=== PATIENT | male | born 1940 | race Caucasian/White ===

== ENCOUNTER → 2022-12-05 | Outpatient (CLI) | payer OTHER ==
--- NOTE | 2022-12-05 14:56 | CT ---
EXAMINATION TYPE: CT chest wo con CT DLP: 333 mGycm, Automated exposure control for dose reduction was used. DATE OF EXAM: 12/05/2022 2:09 PM COMPARISON: None CLINICAL INDICATION:Male, 82 years old with history of R06.09 dyspnea; PHH, Difficulty breathing TECHNIQUE: : High resolution contiguous 1.5 mm axial images of the chest were obtained in a supine an d prone position. Noncontiguous 1 mm axial images at 10 mm intervals were obtained in supine position in expiration. Coronal and sagittal reformatted images were obtained. No intravenous contrast was ad ministered. Contrast used: mL of (None if empty) Oral contrast used: (None if empty) FINDINGS: LUNGS: There is no evidence of interstitial thickening, significant groundglass opacity, honeycombing or architectural distortion in the lungs. No acute area of infiltrative or consolidative change. LARGE AIRWAYS: Minimal bronchiectasis noted in the lung bases.. Central airways are patent. PLEURA: No pleural effusion or thickening. HEART AND PERICARDIUM: The heart is enlarged for size. Coronary artery cusp patient's. Cardiac conduc tion leads are present. MEDIASTINUM AND [place]: No mediastinal or hilar lymphadenopathy or soft tissue mass. VESSELS: The thoracic aorta is normal in course and caliber. CHEST WALL AND DIAPHRAGM: Normal. LOWER NECK: Normal. UPPER ABDOMEN: Unremarkable. MUSCULOSKELETAL: No acute fracture. IMPRESSION: 1. No HRCT findings suspicious for interstitial lung disease. 2. Mild COPD. 3. Cardiomegaly
== END | disposition home or self-care (01) ==
LOC: RADCTMAIN 13:30
PROVIDERS: ATTEND Internal Medicine Critical Care Medicine
DX: J44.9 Chronic obstructive pulmonary disease, unspecified (principal); R06.09 Other forms of dyspnea; I51.7 Cardiomegaly
CPT/HCPCS: 71250

== ENCOUNTER → 2023-02-09 | Outpatient (CLI) | payer OTHER ==
[2023-02-09 16:26] LABS: Basophils # (A) 0.06 X 10*3/uL (0.00-0.10); Basophils % (A) 0.7 %; Eosinophils # (A) 0.36 X 10*3/uL (0.04-0.35); Eosinophils % (A) 4.1 %; HCT 42.7 % (39.6-50.0); HGB 13.6 d/dL (13.0-17.0); Lymphocytes # (A) 2.28 X 10*3/uL (0.90-5.00); Lymphocytes % (A) 25.9 %; MCHC 31.9 d/dL (32.0-37.0); Mean Platelet Volume 11.2 FL (9.5-12.2); Monocytes # (A) 0.84 X 10*3/uL (0.20-1.00); Monocytes % (A) 9.5 %; NRBC Per 100 WBC 0 X 10*3/uL (0.00-0.01); Neutrophils # (A) 5.23 X 10*3/uL (1.80-7.70); Neutrophils % (A) 59.5 %; Platelet Count 201 X 10*3/uL (140-440); RBC 4.69 X 10*6/uL (4.40-5.60)
[2023-02-09 16:38] LABS: BUN/Creat Ratio 17.44 Ratio (12.00-20.00); Blood Urea Nitrogen 15.7 mg/dL (9.0-27.0); Calcium 9.2 mg/dL (8.7-10.3); Carbon Dioxide 23.1 mmol/L (21.6-31.8); Chloride 109 mmol/L (96-109); Glucose 110 mg/dL (70-110); Potassium 4.6 mmol/L (3.5-5.5); Sodium 142 mmol/L (135-145)
== END | disposition home or self-care (01) ==
LOC: LABPAT 08:34
PROVIDERS: ATTEND Urology
DX: Z01.812 Encounter for preprocedural laboratory examination (principal); N40.1 Benign prostatic hyperplasia with lower urinary tract symptoms; N13.8 Other obstructive and reflux uropathy
CPT/HCPCS: 80048; 85025

== ENCOUNTER → 2023-02-15 | Day surgery (SDC) | payer OTHER ==
--- NOTE | 2023-02-13 22:36 | P.GSHP ---
History of Present Illness H&P Date: 02/13/23 Chief Complaint: Weak urinary stream The patient is an 82-year-old white male with BPH. Specifically, he reports a weak urinary stream, postvoid dribbling, and urinary urge incontinence despite taking doxazosin 8 mg daily. Cystoscopy shows bilobar BPH with a high median bar. Alternative BPH treatment options were reviewed in detail with the patient, both medical and surgical. He has elected to undergo a transurethral resection of the prostate (TURP). - Cardiovascular Cardiovascular: Reports high blood pressure - Genitourinary (Male) Genitourinary: Reports as per HPI Past Medical History Past Medical History: Hyperlipidemia, Hypertension, Myocardial Infarction (NH), Prostate Disorder Additional Past Medical History / Comment(s): seasonal allergies,silent mi Last Myocardial Infarction Date:: unk History of Any Multi-Drug Resistant Organisms: None Reported Past Surgical History: Back Surgery, Heart Catheterization, Heart Catheterization With Stent, Pacemaker Additional Past Surgical History / Comment(s): lower back, discectomy to neck, Past Anesthesia/Blood Transfusion Reactions: No Reported Reaction Date of Last Stent Placement:: 2015 ? Type of Cardiac Device: Permanent Pacemaker, AICD Device Placement Date:: 2020 Smoking Status: Former smoker - Past Family History Mother Family Medical History: Cancer Additional Family Medical History / Comment(s): breast Brother(s) Family Medical History: Cancer Additional Family Medical History / Comment(s): prostate Medications and Allergies Home Medications Medication Instructions Recorded Confirmed Type Aspirin [Adult Low Dose Aspirin EC] 81 mg PO DAILY 02/09/23 02/09/23 History Carvedilol(Unk) 25 mg PO BID 02/09/23 02/09/23 History Doxazosin(Unk) 8 mg PO DAILY 02/09/23 02/09/23 History Losartan(Unk) 100 mg PO DAILY 02/09/23 02/09/23 History Montelukast Sodium 10 mg PO DAILY 02/09/23 02/09/23 History Preservision (Unk) 1 tab PO DAILY 02/09/23 02/09/23 History Allergies Allergy/AdvReac Type Severity Reaction Status Date / Time atorvastatin [From Lipitor] AdvReac Unknown Verified 02/09/23 12:29 antihistmines(unk) AdvReac Unknown Uncoded 02/09/23 12:29 Surgical - Exam - General well developed, well nourished, no distress - Respiratory normal respiratory effort - Abdomen Abdomen: soft, non tender, no guarding, no rigid, no rebound Hernia: inguinal - Genitourinary normal penis with no external lesions, testicles non-tender - Rectum Rectum: normal sphincter tone, no masses, other (Prostate mildly enlarged but smooth) - Psychiatric oriented to time, oriented to person, oriented to place, speech is normal, memory intact Assessment and Plan (1) Benign prostatic hyperplasia with lower urinary tract symptoms Status: Acute Code(s): N40.1 - BENIGN PROSTATIC HYPERPLASIA WITH LOWER URINARY TRACT SYMP SNOMED Code(s): 890913253 Plan: Cystoscopy, TURP: I discussed the options concerning surgery versus medication. I advised him with regard to TURP as opposed to minimally invasive procedures such as Urolift. TURP was also contrasted with HOLEP. Potential risks were discussed, including anesthesia, bleeding, infection, retrograde ejaculation, incontinence, and vesical neck contracture. Following a lengthy discussion, as a result of shared decision making, the patient has elected to proceed with a bipolar TURP.
[~2023-02-15] MED LIST: DEXAMETHASONE SOD PHOSPHATE 4 MG/ML 1 ML VIAL IV ONE; FUROSEMIDE 10 MG/ML 2 ML VIAL ONE; GLYCOPYRROLATE 0.2 MG/ML 2 ML VIAL ONE; HYDROmorphone 0.5 MG/0.5 ML SYRINGE IVP PRN; LACTATED RINGERS 1,000 ML IV ONE; LACTATED RINGERS 1,000 ML IV SCH; LIDOCAINE 1% (10MG/ML) FOR IV START INTRADERMA PRN; LIDOCAINE 1% INJ 10MG/ML (20 ML MDV) ONE; MIDAZOLAM 2 MG/2 ML VIAL IV PRN; NEOSTIGMINE 1 MG/ML 10 ML VIAL ONE; ONDANSETRON 4 MG/2 ML VIAL IVP ONE; ONDANSETRON 4 MG/2 ML VIAL ONE; PHENYLEPHRINE 10 MG/ML 5 ML VIAL ONE; PROPOFOL 10 MG/ML 20 ML VIAL IV ONE; ROCURONIUM 10 MG/ML (5 ML VIAL) IV ONE; SUCCINYLCHOLINE CHLORIDE 200 MG/10 ML VIAL IV ONE; fentaNYL (PF) 50 MCG/ML 2 ML AMP IV PRN; fentaNYL (PF) 50 MCG/ML 2 ML AMP ONE
[2023-02-15 16:41] VITALS: TEMP 97.4
--- NOTE | 2023-02-15 16:46 | P.OP ---
Date of Procedure: 02/15/23 Preoperative Diagnosis: BPH with obstruction Postoperative Diagnosis: Same Procedure(s) Performed: Cystoscopy, bipolar transurethral resection of prostate (TURP) Anesthesia: SPENCER Surgeon: Kevon Chandler Estimated Blood Loss (ml): 50 IV fluids (ml): 1,100 Pathology: other (Prostate chips) Condition: stable Disposition: PACU Indications for Procedure: The patient is an 82-year-old white male with BPH. Specifically, he reports a weak urinary stream, postvoid dribbling, and urinary urge incontinence despite taking doxazosin 8 mg daily. Cystoscopy shows bilobar BPH with a high median bar. Alternative BPH treatment options were reviewed in detail with the patient, both medical and surgical. He has elected to undergo a transurethral resection of the prostate (TURP). Operative Findings: Bilobar BPH with high, obstructing median bar. 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 Description of Procedure: The patient was taken in the operating room and placed in the dorsolithotomy position. The external genitalia was prepped and draped sterilely. The 25- [place] ACMI resectoscope sheath was introduced into the urethra under direct vision. The vesical neck appeared scarred, and it was not possible to advance the resectoscope into the bladder. Using the bipolar cutting loop, the posterior aspect of the vesical neck and prostate was resected, allowing passage of the resectoscope into the bladder. The bladder was inspected. Both ureteral orifices were of normal anatomic location and configuration. No tumors or foreign bodies were seen. Examination of the prostate revealed complete obstruction with a bilobar configuration. Interestingly, the vesicle neck appeared scarred and the most proximal portion of the prostatic urethra was open, as if he had undergone a prior procedure. Using the bipolar cutting loop, the lateral lobes were resected down to the surgical capsule. The floor of the prostate was then resected, proximal to the verumontanum. Next, the remaining anterior tissue was resected. The residual apical tissue was then carefully resected, with care taken to avoid injury to the external urinary sphincter. The resection was carried down to the surgical capsule in all 4 quadrants. The prostatic fossa was then carefully examined, and any areas of bleeding were controlled with electrocautery. Excellent hemostasis was attained. The resectoscope was withdrawn into the bulbous urethra. The external urinary sphincter remained intact. The prostatic fossa was open. The Ellik evacuator was used to remove all prostate chips from the bladder. These were saved and sent for pathologic examination. The resectoscope was removed, and a 20 [place] Bai catheter was placed. The return was essentially clear. The patient tolerated the procedure well was taken to the recovery room in stable condition.
[2023-02-15 18:03] VITALS: BP 143/80; PULSE 71; RESP 16
== END | disposition home or self-care (01) ==
LOC: OR 10:23
PROVIDERS: ATTEND Urology
DX: C61 Malignant neoplasm of prostate (principal); N40.1 Benign prostatic hyperplasia with lower urinary tract symptoms; N13.8 Other obstructive and reflux uropathy; I25.2 Old myocardial infarction; I10 Essential (primary) hypertension; I25.10 Atherosclerotic heart disease of native coronary artery without angina pectoris; E78.5 Hyperlipidemia, unspecified; Z87.891 Personal history of nicotine dependence; Z88.8 Allergy status to other drugs, medicaments and biological substances; Z95.5 Presence of coronary angioplasty implant and graft; Z95.0 Presence of cardiac pacemaker
CPT/HCPCS: 52601; J0330; J1100; J1940; J2710; J0690; J2405; J2001; J3010; J2704; J2371; 88305; 88344

== ENCOUNTER 2024-01-20 07:13 | Emergency (ER) | payer OTHER ==
--- NOTE | 2024-01-20 07:54 | ED ---
General Adult HPI - General Chief complaint: Urogenital Stated complaint: catheter issues Time Seen by Provider: 01/20/24 07:15 Source: patient, RN notes reviewed Mode of arrival: ambulatory Limitations: no limitations - History of Present Illness Initial comments: 83 year old male presents to the emergency department with chief complaint of urinary catheter occlusion with past history of bladder neck narrowing. He states that on 01/13 he had a new catheter placed and it was initially draining; however, over the last couple of days it has been leaking around. He is scheduled for surgery January [address] Tripathi. He also reports some some swelling and erythema of meatus and scrotum in addition to infrequent abdominal pressure. He denies dysuria, hematuria, and bladder pain/spasm. - Related Data Home Medications Medication Instructions Recorded Confirmed Aspirin [Adult Low Dose Aspirin EC] 81 mg PO DAILY 02/09/23 02/15/23 Carvedilol(Unk) 25 mg PO BID 02/09/23 02/15/23 Doxazosin(Unk) 8 mg PO DAILY 02/09/23 02/15/23 Losartan(Unk) 100 mg PO DAILY 02/09/23 02/15/23 Montelukast Sodium 10 mg PO DAILY 02/09/23 02/15/23 Preservision (Unk) 1 tab PO DAILY 02/09/23 02/15/23 Previous Rx's Medication Instructions Recorded Ciprofloxacin HCl [Cipro] 250 mg PO Q12HR #6 tablet 02/15/23 Cephalexin [Keflex] 500 mg PO Q8HR #21 cap 01/20/24 Fluconazole [Diflucan] 150 mg PO Q48H #4 tab 01/20/24 Allergies Allergy/AdvReac Type Severity Reaction Status Date / Time atorvastatin [From Lipitor] AdvReac Unknown Verified 01/20/24 07:22 antihistmines(unk) AdvReac Unknown Uncoded 01/20/24 07:22 Review of Systems ROS Statement: Those systems with pertinent positive or pertinent negative responses have been documented in the HPI. ROS Other: All systems not noted in ROS Statement are negative. Past Medical History Past Medical History: Hypertension Additional Past Medical History / Comment(s): prostate problems History of Any Multi-Drug Resistant Organisms: None Reported Past Psychological History: No Psychological Hx Reported Smoking Status: Unknown if ever smoked Past Alcohol Use History: None Reported Past Drug Use History: None Reported General Exam Limitations: no limitations General appearance: alert, in no apparent distress Head exam: Present: atraumatic, normocephalic, normal inspection Eye exam: Present: normal appearance, PERRL, EOMI. Absent: scleral icterus, conjunctival injection, periorbital swelling ENT exam: Present: normal exam, mucous membranes moist Neck exam: Present: normal inspection. Absent: tenderness, meningismus, lymphadenopathy Respiratory exam: Present: normal lung sounds bilaterally. Absent: respiratory distress, wheezes, rales, rhonchi, stridor Cardiovascular Exam: Present: regular rate, normal rhythm, normal heart sounds. Absent: systolic murmur, diastolic murmur, rubs, gallop, clicks GI/Abdominal exam: Present: soft, normal bowel sounds. Absent: distended, tenderness, guarding, rebound, rigid exam: Present: testicular tenderness, urethral discharge, scrotal swelling External exam: Present: erythema, swelling Extremities exam: Present: normal inspection, full ROM, normal capillary refill. Absent: tenderness, pedal edema, joint swelling, calf tenderness Back exam: Present: normal inspection Neurological exam: Present: alert, oriented X3, CN II-XII intact Psychiatric exam: Present: normal affect, normal mood Skin exam: Present: warm, dry, intact, normal color. Absent: rash Course Vital Signs 01/20/24 07:18 Temperature 97.5 F L Pulse Rate 81 Respiratory 18 Rate Blood Pressure 165/75 O2 Sat by Pulse 97 Oximetry Medical Decision Making - Medical Decision Making Was pt. sent in by a medical professional or institution (, PA, SALESMAN/OWNER, urgent care, hospital, or shelter...) When possible be specific @ -No Did you speak to anyone other than the patient for history (EMS, parent, family, police, friend...)? What history was obtained from this source @ -No Did you review nursing and triage notes (agree or disagree)? Why? @ -I reviewed and agree with nursing and triage notes Were old charts reviewed (outside hosp., previous admission, EMS record, old EKG, old radiological studies, urgent care reports/EKG's, shelter records)? Report findings @ -No old charts were reviewed Differential Diagnosis (chest pain, altered mental status, abdominal pain women, abdominal pain men, vaginal bleeding, weakness, fever, dyspnea, syncope, headache, dizziness, GI bleed, back pain, seizure, CVA, palpatations, mental health, musculoskeletal)? @ -Urinary retention, Bai catheter complication, UTI, abdominal pain EKG interpreted by me (3pts min.). @ -None X-rays interpreted by me (1pt min.). @ -None done CT interpreted by me (1pt min.). @ -None done U/S interpreted by me (1pt. min.). @ -None done What testing was considered but not performed or refused? (CT, X-rays, U/S, labs)? Why? @ -None What meds were considered but not given or refused? Why? @ -None Did you discuss the management of the patient with other professionals (professionals i.e. , PA, SALESMAN/OWNER, lab, RT, psych nurse, home health care social worker, zinc chloride operator, teacher, humane officer, rehabilitation caseworker)? Give summary @ -No Was smoking cessation discussed for >3mins.? @ -No Was critical care preformed (if so, how long)? @ -No Were there social determinants of health that impacted care today? How? (Homelessness, low income, unemployed, alcoholism, drug addiction, transportation, low edu. Level, literacy, decrease access to med. care, shelter, rehab)? @ -No Was there de-escalation of care discussed even if they declined (Discuss DNR or withdrawal of care, Hospice)? DNR status @ -No What co-morbidities impacted this encounter? (DM, HTN, Smoking, COPD, CAD, Cancer, CVA, ARF, Chemo, Hep., AIDS, mental health diagnosis, sleep apnea, morbid obesity)? @ -None Was patient admitted / discharged? Hospital course, mention meds given and route, prescriptions, significant lab abnormalities, going to OR and other pertinent info. @ -Discharge catheter was irrigated, draining well. Patient does have noted UTI catheter was placed 5 days ago. Patient was placed on oral antibiotics we discussed exchanging the patient states was a difficult placement and will follow-up with urology. Undiagnosed new problem with uncertain prognosis? @ -No Drug Therapy requiring intensive monitoring for toxicity (Heparin, Nitro, Insulin, Cardizem)? @ -No Were any procedures done? @ -No Diagnosis/symptom? @ -UTI Bai catheter complication Acute, or Chronic, or Acute on Chronic? @ -Acute Uncomplicated (without systemic symptoms) or Complicated (systemic symptoms)? @ -Uncomplicated Side effects of treatment? @ -No Exacerbation, Progression, or Severe Exacerbation? @ -No Poses a threat to life or bodily function? How? (Chest pain, [place], [place], pneumonia, PE, COPD, DKA, ARF, appy, cholecystitis, CVA, Diverticulitis, Homicidal, Suicidal, threat to staff... and all critical care pts) @ -No - Lab Data Lab Results 01/20/24 Range/Units 08:11 Urine Color Colorless Urine Appearance Cloudy (Clear) Urine pH 5.5 (5.0-8.0) Ur Specific [place] 1.011 (1.001-1.035) Urine Protein 1+ H (Negative) Urine Glucose (UA) 4+ H (Negative) Urine Ketones Negative (Negative) Urine Blood Small H (Negative) Urine Nitrite Negative (Negative) Urine Bilirubin Negative (Negative) Urine Urobilinogen <2.0 (<2.0) mg/dL Ur Leukocyte Esterase Large H (Negative) Urine RBC 70 H (0-5) /hpf Urine WBC >182 H (0-5) /hpf Urine WBC Clumps Many H (None) /hpf Ur Squamous Epith Cells <1 (0-4) /hpf Urine Bacteria Many H (None) /hpf Urine Mucus Rare H (None) /hpf Urine Yeast (Budding) Few H (None) /hpf Disposition Clinical Impression: UTI (urinary tract infection), Urinary retention, Candidal skin infection Disposition: HOME SELF-CARE Condition: Stable Instructions (If sedation given, give patient instructions): Urinary Tract Infection in Men (ED) Additional Instructions: Please return to the Emergency Department if symptoms worsen or any other concerns. Prescriptions: Fluconazole [Diflucan] 150 mg PO Q48H #4 tab Cephalexin [Keflex] 500 mg PO Q8HR #21 cap Is patient prescribed a controlled substance at d/c from ED?: No Referrals: [facility],Clinic [Primary Care Provider] - 1-2 days Time of Disposition: 08:55
[2024-01-20 08:42] LABS: Appearance,Urine Cloudy (Clear); Bacteria,Urine Many /hpf; Bilirubin,Urine Negative (Negative); Blood,Urine Small (Negative); Budding Yeast,Urine Few /hpf; Color,Urine Colorless; Glucose,Urine (UA) 4+ (Negative); Ketones,Urine Negative (Negative); Leukocyte Esterase,Urine Large (Negative); Mucus,Urine Rare /hpf; Nitrite,Urine Negative (Negative); PH, Urine 5.5 (5.0-8.0); Protein,Urine 1+ (Negative); RBC,Urine 70 /hpf (0-5); Specific Gravity,Urine 1.011 (1.001-1.035); Squamous Epithelial Cell,Urine <1 /hpf (0-4); Urobilinogen,Urine <2.0 mg/dL (<2.0); WBC,Urine >182 /hpf (0-5)
[2024-01-20] MEDS: cefTRIAXone 1,000 MG VIAL (IM USE) IM STA (09:08)
[2024-01-20 09:13] VITALS: BP 156/88; PULSE 70; RESP 20; TEMP 98.2
== END 2024-01-20 09:13 | disposition home or self-care (01) ==
LOC: EC 07:13
CPT/HCPCS: 51702; 81001; 87077; 87086; 87186; 96372; 99283

== ENCOUNTER 2024-01-22 06:50 | Emergency (ER) | payer OTHER ==
--- NOTE | 2024-01-22 07:03 | ED ---
Male Urogenital HPI - General Source: patient, RN notes reviewed Mode of arrival: ambulatory Limitations: no limitations <Deandra Ortega - Last Filed: 01/22/24 07:03> <Luciana Aggarwal - Last Filed: 01/23/24 00:34> - General Stated complaint: Urogenital Time Seen by Provider: 01/22/24 07:02 - History of Present Illness Initial comments: Note: 83-year-old male presented to ER with a chief complaint of urinary catheter dysfunction. Patient has urinary catheter due to BPH. He states he was seen here on Sunday had a Bai catheter replaced. He states catheter was working Sunday night and into Sunday morning. States Sunday afternoon he started to have leaking of urine around his catheter. He does follow-up with Dr. hCandler. He denies any pain. (Deandra Ortega) 83-year-old male who presents emergency department with Bai catheter malfunction. Patient was having frequent nocturia. He saw Dr. Suarez last M on and had a urethral dilation. Catheter was placed at that time. Patient was seen in the emergency department 2 days ago for obstruction. The catheter was flushed. Patient was initiated on Diflucan and Keflex. They did offer exchange however patient was concerned as Bai was difficult to place. Patient states that he has not had any urination since yesterday. He thinks that he is obstructed again. He admits to pain. No fevers. He does have surgery planned on January 30 for further dilation (Luciana Aggarwal) - Related Data Home Medications Medication Instructions Recorded Confirmed Aspirin [Adult Low Dose Aspirin EC] 81 mg PO DAILY 02/09/23 02/15/23 Carvedilol(Unk) 25 mg PO BID 02/09/23 02/15/23 Doxazosin(Unk) 8 mg PO DAILY 02/09/23 02/15/23 Losartan(Unk) 100 mg PO DAILY 02/09/23 02/15/23 Montelukast Sodium 10 mg PO DAILY 02/09/23 02/15/23 Preservision (Unk) 1 tab PO DAILY 02/09/23 02/15/23 Previous Rx's Medication Instructions Recorded Ciprofloxacin HCl [Cipro] 250 mg PO Q12HR #6 tablet 02/15/23 Cephalexin [Keflex] 500 mg PO Q8HR #21 cap 01/20/24 Fluconazole [Diflucan] 150 mg PO Q48H #4 tab 01/20/24 Nystatin 100,000Unit/gm Cream 1 applic TOPICAL BID #15 gram 01/22/24 [Mycostatin Cream] Allergies Allergy/AdvReac Type Severity Reaction Status Date / Time atorvastatin [From Lipitor] AdvReac Unknown Verified 01/22/24 07:17 antihistmines(unk) AdvReac Unknown Uncoded 01/22/24 07:17 Review of Systems ROS Other: All systems not noted in ROS Statement are negative. <Deandra Ortega - Last Filed: 01/22/24 07:03> ROS Other: All systems not noted in ROS Statement are negative. <Luciana Aggarwal - Last Filed: 01/23/24 00:34> ROS Statement: Those systems with pertinent positive or pertinent negative responses have been documented in the HPI. Past Medical History Past Medical History: Hypertension Additional Past Medical History / Comment(s): prostate problems History of Any Multi-Drug Resistant Organisms: None Reported Past Surgical History: Back Surgery, Heart Catheterization With Stent, Joint Replacement, Orthopedic Surgery, Pacemaker Past Psychological History: No Psychological Hx Reported Smoking Status: Unknown if ever smoked Past Alcohol Use History: None Reported Past Drug Use History: None Reported <Deandra Ortega - Last Filed: 01/22/24 07:03> General Exam <Deandra Ortega - Last Filed: 01/22/24 07:03> General appearance: alert, in no apparent distress Head exam: Present: atraumatic, normocephalic, normal inspection Eye exam: Present: normal appearance, PERRL, EOMI. Absent: scleral icterus, conjunctival injection, periorbital swelling ENT exam: Present: normal exam, mucous membranes moist Neck exam: Present: normal inspection. Absent: tenderness, meningismus, lymphadenopathy Respiratory exam: Present: normal lung sounds bilaterally. Absent: respiratory distress, wheezes, rales, rhonchi, stridor Cardiovascular Exam: Present: regular rate, normal rhythm, normal heart sounds. Absent: systolic murmur, diastolic murmur, rubs, gallop, clicks GI/Abdominal exam: Present: soft, normal bowel sounds. Absent: distended, tenderness, guarding, rebound, rigid exam: Present: scrotal swelling Extremities exam: Present: normal inspection, full ROM, normal capillary refill. Absent: tenderness, pedal edema, joint swelling, calf tenderness Back exam: Present: normal inspection Neurological exam: Present: alert, oriented X3, CN II-XII intact Psychiatric exam: Present: normal affect, normal mood Skin exam: Present: warm, dry, intact, normal color. Absent: rash <Luciana Aggarwal - Last Filed: 01/23/24 00:34> - General Exam Comments Initial Comments: Visual Physical Exam General: Well-appearing, nontoxic, no acute distress. Head: Normocephalic, atraumatic Eyes: PERRLA, EOMI ENT: Airway patent Chest: Nonlabored breathing Skin: No visual rash, normal skin tone Neuro: Alert and oriented 3 Musculoskeletal: No gross abnormalities (Deandra Ortega) Course Vital Signs 01/22/24 01/22/24 07:14 09:01 Temperature 98 F 98.1 F Pulse Rate 90 88 Respiratory 18 18 Rate Blood Pressure 121/75 125/76 O2 Sat by Pulse 95 97 Oximetry Medical Decision Making <Deandra Ortega - Last Filed: 01/22/24 07:03> <Luciana Aggarwal - Last Filed: 01/23/24 00:34> - Medical Decision Making Measure (Deandra Ortega) Was pt. sent in by a medical professional or institution (ALEXANDER Puente, BLENDING MACHINE OPERATOR, urgent care, hospital, or care home...) When possible be specific @ -No Did you speak to anyone other than the patient for history (EMS, parent, family, police, friend...)? What history was obtained from this source @ -No Did you review nursing and triage notes (agree or disagree)? Why? @ -I reviewed and agree with nursing and triage notes Were old charts reviewed (outside hosp., previous admission, EMS record, old EKG, old radiological studies, urgent care reports/EKG's, care home records)? Report findings @ -I reviewed the chart from 2 days ago Differential Diagnosis (chest pain, altered mental status, abdominal pain women, abdominal pain men, vaginal bleeding, weakness, fever, dyspnea, syncope, headache, dizziness, GI bleed, back pain, seizure, CVA, palpatations, mental health, musculoskeletal)? @ -Differential Abdominal Pain Men: Appendicitis, cholecystitis, diverticulosis, ischemic bowel, pancreatitis, hepatitis, UTI, gastroenteritis, AAA, incarcerated hernia, bowel obstruction, constipation, inflammatory bowel, hepatitis, peptic ulcer disease, splenic infarction, perforated viscus, testicular torsion, this is not meant to be an all-inclusive list EKG interpreted by me (3pts min.). @ -Not done X-rays interpreted by me (1pt min.). @ -None done CT interpreted by me (1pt min.). @ -None done U/S interpreted by me (1pt. min.). @ -None done What testing was considered but not performed or refused? (CT, X-rays, U/S, labs)? Why? @ -None What meds were considered but not given or refused? Why? @ -None Did you discuss the management of the patient with other professionals (professionals i.e. , PA, BLENDING MACHINE OPERATOR, lab, RT, psych nurse, transition social worker, credit coordinator, teacher, bomb squad officer, child welfare caseworker)? Give summary @ -No Was smoking cessation discussed for >3mins.? @ -No Was critical care preformed (if so, how long)? @ -No Were there social determinants of health that impacted care today? How? (Homelessness, low income, unemployed, alcoholism, drug addiction, transportation, low edu. Level, literacy, decrease access to med. care, m[facility], rehab)? @ -No Was there de-escalation of care discussed even if they declined (Discuss DNR or withdrawal of care, Hospice)? DNR status @ -No What co-morbidities impacted this encounter? (DM, HTN, Smoking, COPD, CAD, Cancer, CVA, ARF, Chemo, Hep., AIDS, mental health diagnosis, sleep apnea, morbid obesity)? @ -None Was patient admitted / discharged? Hospital course, mention meds given and route, prescriptions, significant lab abnormalities, going to OR and other p ertinent info. @ -Upon arrival patient seen and evaluated in room 32. Thorough history and physical exam was performed. Bai catheter is exchanged to a 16 Amharic. Patient is draining well. Urine culture is still pending at this time. Patient will be started on nystatin cream. He is to follow-up with the urologist as scheduled. Return for any new or worsening symptoms Undiagnosed new problem with uncertain prognosis? @ -No Drug Therapy requiring intensive monitoring for toxicity (Heparin, Nitro, Insulin, Cardizem)? @ -No Were any procedures done? @ -No Diagnosis/symptom? @ -Bai catheter malfunction, UTI Acute, or Chronic, or Acute on Chronic? @ -Acute Uncomplicated (without systemic symptoms) or Complicated (systemic symptoms)? @ -Complicated Side effects of treatment? @ -No Exacerbation, Progression, or Severe Exacerbation? @ -No Poses a threat to life or bodily function? How? (Chest pain, [place], PR, pneumonia, PE, COPD, DKA, ARF, appy, cholecystitis, CVA, Diverticulitis, Homicidal, Suicidal, threat to staff... and all critical care pts) @ -No (Luciana Aggarwal) - Lab Data Lab Results 01/22/24 Range/Units 07:52 Urine Color Light Yellow Urine Appearance Cloudy (Clear) Urine pH 5.5 (5.0-8.0) Ur Specific [place] 1.021 (1.001-1.035) Urine Protein Trace H (Negative) Urine Glucose (UA) 4+ H (Negative) Urine Ketones Negative (Negative) Urine Blood Trace H (Negative) Urine Nitrite Negative (Negative) Urine Bilirubin Negative (Negative) Urine Urobilinogen <2.0 (<2.0) mg/dL Ur Leukocyte Esterase Large H (Negative) Urine RBC 16 H (0-5) /hpf Urine WBC >182 H (0-5) /hpf Urine WBC Clumps Occasional H (None) /hpf Urine Mucus Rare H (None) /hpf Disposition <Deandra Ortega - Last Filed: 01/22/24 07:03> Is patient prescribed a controlled substance at d/c from ED?: No Time of Disposition: 08:47 <Luciana Aggarwal - Last Filed: 01/23/24 00:34> Clinical Impression: Bai catheter problem, UTI (urinary tract infection), Yeast infection Disposition: HOME SELF-CARE Condition: Stable Instructions (If sedation given, give patient instructions): Urinary Retention in Men (ED), Urinary Tract Infection in Men (ED) Additional Instructions: We will call you with culture results if we have to change your antibiotic. Continue taking the antibiotic you were prescribed. Return for any new or worsening symptoms Prescriptions: Nystatin 100,000Unit/gm Cream [Mycostatin Cream] 1 applic TOPICAL BID #15 gram Referrals: None,Stated [Primary Care Provider] - 1-2 days Kevon Chandler MD [STAFF PHYSICIAN] - 1-2 days
[2024-01-22 07:17] VITALS: RESP 18
[2024-01-22 08:10] LABS: Appearance,Urine Cloudy (Clear); Bilirubin,Urine Negative (Negative); Blood,Urine Trace (Negative); Color,Urine Light Yellow; Glucose,Urine (UA) 4+ (Negative); Ketones,Urine Negative (Negative); Leukocyte Esterase,Urine Large (Negative); Mucus,Urine Rare /hpf; Nitrite,Urine Negative (Negative); PH, Urine 5.5 (5.0-8.0); Protein,Urine Trace (Negative); RBC,Urine 16 /hpf (0-5); Specific Gravity,Urine 1.021 (1.001-1.035); Urobilinogen,Urine <2.0 mg/dL (<2.0); WBC,Urine >182 /hpf (0-5)
[2024-01-22 09:02] VITALS: BP 125/76; PULSE 88; TEMP 98.1
== END 2024-01-22 09:03 | disposition home or self-care (01) ==
LOC: EC 06:50
CPT/HCPCS: 51702; 81001; 99283

== ENCOUNTER 2024-01-31 07:26 | Day surgery (SDC) | payer OTHER ==
--- NOTE | 2024-01-18 13:12 | P.GSHP ---
History of Present Illness H&P Date: 01/18/24 Chief Complaint: Difficulty voiding, nocturia The patient is an 83-year-old white male who underwent a TURP in January 2023. He recently presented back with a weak urinary stream and nocturia x 10. Cystoscopy performed on January 14, 2024 showed a vesical neck contracture. Using filiforms and followers, it was possible to dilate the vesical neck contracture to [address] a 14 [place] Bai catheter. - Genitourinary (Male) Genitourinary: Reports nocturia, Denies dysuria, Denies hematuria Medications and Allergies Home Medications Medication Instructions Recorded Confirmed Type Aspirin [Adult Low Dose Aspirin EC] 81 mg PO DAILY 02/09/23 02/15/23 History Carvedilol(Unk) 25 mg PO BID 02/09/23 02/15/23 History Doxazosin(Unk) 8 mg PO DAILY 02/09/23 02/15/23 History Losartan(Unk) 100 mg PO DAILY 02/09/23 02/15/23 History Montelukast Sodium 10 mg PO DAILY 02/09/23 02/15/23 History Preservision (Unk) 1 tab PO DAILY 02/09/23 02/15/23 History Ciprofloxacin HCl [Cipro] 250 mg PO Q12HR #6 tablet 02/15/23 Rx Allergies Allergy/AdvReac Type Severity Reaction Status Date / Time atorvastatin [From Lipitor] AdvReac Unknown Verified 02/15/23 10:55 antihistmines(unk) AdvReac Unknown Uncoded 02/15/23 10:55 Surgical - Exam - General well developed, well nourished, no distress - Respiratory normal respiratory effort - Abdomen Abdomen: soft, non tender, no guarding, no rigid, no rebound - Genitourinary normal penis with no external lesions, testicles non-tender - Psychiatric oriented to time, oriented to person, oriented to place, speech is normal, memory intact Assessment and Plan (1) Bladder-neck obstruction Status: Acute Code(s): N32.0 - BLADDER-NECK OBSTRUCTION SNOMED Code(s): 496842195 Plan: Cystoscopy, transurethral incision of vesical neck contracture. The procedure has been reviewed in detail with the patient. Potential risks were reviewed with the patient, including anesthesia, bleeding, infection, and recurrent vesical neck contracture.
[~2024-01-31 07:26] MED LIST changes: -DEXAMETHASONE SOD PHOSPHATE 4 MG/ML 1 ML VIAL IV ONE; -FUROSEMIDE 10 MG/ML 2 ML VIAL ONE; -GLYCOPYRROLATE 0.2 MG/ML 2 ML VIAL ONE; -LACTATED RINGERS 1,000 ML IV ONE; -LACTATED RINGERS 1,000 ML IV SCH; -LIDOCAINE 1% INJ 10MG/ML (20 ML MDV) ONE; -NEOSTIGMINE 1 MG/ML 10 ML VIAL ONE; -ONDANSETRON 4 MG/2 ML VIAL IVP ONE; -ONDANSETRON 4 MG/2 ML VIAL ONE; -PHENYLEPHRINE 10 MG/ML 5 ML VIAL ONE; -PROPOFOL 10 MG/ML 20 ML VIAL IV ONE; -ROCURONIUM 10 MG/ML (5 ML VIAL) IV ONE; -SUCCINYLCHOLINE CHLORIDE 200 MG/10 ML VIAL IV ONE; -fentaNYL (PF) 50 MCG/ML 2 ML AMP IV PRN; +fentaNYL (PF) 50 MCG/ML 2 ML AMP IVP PRN; -fentaNYL (PF) 50 MCG/ML 2 ML AMP ONE
[2024-01-31 08:44] LABS: Glucose,Whole Blood 124 mg/dL (70-110)
[2024-01-31] MEDS: LACTATED RINGERS 1,000 ML IV SCH (08:48)
[2024-01-31] MEDS: DEXAMETHASONE SOD PHOSPHATE 4 MG/ML 1 ML VIAL IV ONE (08:48)
[2024-01-31] MEDS: ONDANSETRON 4 MG/2 ML VIAL IVP ONE (08:48)
[2024-01-31] MEDS: IV FLUID CONTINUATION 1,000 ML IV ONE (08:52)
[2024-01-31] MEDS ORDERED: ROCURONIUM 10 MG/ML (5 ML VIAL) IV ONE (10:04)
[2024-01-31] MEDS ORDERED: GLYCOPYRROLATE 0.2 MG/ML 2 ML VIAL ONE (10:04)
[2024-01-31] MEDS ORDERED: LIDOCAINE 1% INJ 10MG/ML (20 ML MDV) ONE (10:04)
[2024-01-31] MEDS ORDERED: fentaNYL (PF) 50 MCG/ML 2 ML AMP ONE (10:04)
[2024-01-31] MEDS ORDERED: NEOSTIGMINE 1 MG/ML 10 ML VIAL ONE (10:04)
[2024-01-31] MEDS ORDERED: PROPOFOL 10 MG/ML 20 ML VIAL IV ONE (10:04)
[2024-01-31] MEDS ORDERED: PHENYLEPHRINE-0.9% NACL SYG 1,000 MCG/10 ML SYRINGE ONE (10:04)
[2024-01-31] MEDS: LACTATED RINGERS 1,000 ML IV ONE (10:59)
--- NOTE | 2024-01-31 11:22 | P.OP ---
Date of Procedure: 01/31/24 Preoperative Diagnosis: Vesical neck contracture Postoperative Diagnosis: Same Procedure(s) Performed: Cystoscopy, transurethral incision of vesical neck contracture (TUI-VNC) Anesthesia: SPENCER Surgeon: Kevon Chandler Estimated Blood Loss (ml): 5 IV fluids (ml): 700 Pathology: none sent Condition: stable Disposition: PACU Indications for Procedure: The patient is an 83-year-old white male who underwent a TURP in January 2023. He recently presented back with a weak urinary stream and nocturia x 10. Cystoscopy performed on January 14, 2024 showed a vesical neck contracture. Using filiforms and followers, it was possible to dilate the vesical neck contracture to [address] a 14 Congolese Bai catheter. Operative Findings: Wide caliber vesical neck contracture Description of Procedure: The patient was taken in the operating room and placed in the dorsolithotomy position. The external genitalia was prepped and draped sterilely. The 24- Congolese Stortz resectoscope sheath was introduced through the urethra and into the bladder under direct vision. The anterior urethra appeared normal. The prostatic fossa was open. It was possible to advance the resectoscope into the bladder with minimal resistance at the level of the vesical neck. The bladder was unremarkable. The ureteral orifice ease appeared normal. No tumors or foreign bodies were seen. It was evident that the vesical neck contracture had gradually dilated as a result of the indwelling Bai catheter. Using a Shrestha knife, incisions were made through the vesical neck and prostatic urethra at the 5:00 and 7:00 positions, up to the verumontanum. This allowed the vesical neck contracture and prostatic urethra to opened nicely. Minimal bleeding was controlled with electrocautery. Excellent hemostasis was attained. The resectoscope was removed, and an 18 Congolese Bai catheter was placed. The return was clear. The catheter was connected to gravity drainage. The patient tolerated the procedure well was taken to the recovery room in stable condition.
[2024-01-31 11:26] VITALS: TEMP 97.2
[2024-01-31 11:45] VITALS: RESP 16
[2024-01-31 12:39] VITALS: BP 146/65; PULSE 71
== END 2024-01-31 12:50 | disposition home or self-care (01) ==
LOC: OR 07:26
PROVIDERS: ATTEND Urology
DX: N32.0 Bladder-neck obstruction
CPT/HCPCS: 84132

== ENCOUNTER → 2024-10-14 | Outpatient (CLI) | payer OTHER | END | disposition home or self-care (01) | LOC: LABWHC1 10:53 | PROVIDERS: ATTEND Orthopaedic Surgery | DX: Z13.1 Encounter for screening for diabetes mellitus (principal); Z01.89 Encounter for other specified special examinations; K76.9 Liver disease, unspecified; Z79.899 Other long term (current) drug therapy | CPT/HCPCS: 87070 ==